=== PATIENT | male | born 1955 ===

== ENCOUNTER 2023-03-03 10:17 | Outpatient (CLI) | payer OTHER | END 2023-03-03 10:20 | disposition home or self-care (01) | LOC: SONOGRAMA 10:17 | PROVIDERS: ATTEND Pathology Anatomic Pathology & Clinical Pathology | DX: D44.0 Neoplasm of uncertain behavior of thyroid gland (principal); D34 Benign neoplasm of thyroid gland; E04.9 Nontoxic goiter, unspecified; E07.9 Disorder of thyroid, unspecified ==